=== PATIENT | male | born 1970 | race Caucasian/White ===

== ENCOUNTER 2022-12-12 10:50 | Observation (INO) | payer OTHER ==
[2022-12-12] MEDS ORDERED: NALOXONE 0.4 MG/ML 1 ML VIAL IV STA (11:10)
[2022-12-12] MEDS ORDERED: SODIUM CHLORIDE 0.9% 1,000 ML IV ONE (11:10)
--- NOTE | 2022-12-12 12:05 | ED ---
General Adult HPI - General Chief complaint: Altered Mental Status Stated complaint: AMS Time Seen by Provider: 12/12/22 11:00 Source: patient, EMS, RN notes reviewed Mode of arrival: EMS Limitations: altered mental status - History of Present Illness Initial comments: Patient is a pleasant 52-year-old male presenting to the emergency Department with reported change in mental status. Patient has been at [facility] for the past 4 days for methamphetamine and cocaine use. Patient denies any use today. Patient states she just feels very drowsy and fatigued. Patient does not feel confused. Patient does not feel weak. No reported trauma. No history of similar symptoms previously. - Related Data Home Medications Medication Instructions Recorded Confirmed Albuterol Inhaler [Ventolin Hfa 1 - 2 puff INHALATION RT-QID PRN 12/12/22 12/12/22 Inhaler] Aspirin EC [Ecotrin Low Dose] 81 mg PO DAILY 12/12/22 12/12/22 Atorvastatin [Lipitor] 40 mg PO HS 12/12/22 12/12/22 Buprenorphine HCl/Naloxone HCl 1 tab SUBLINGUAL BID 12/12/22 12/12/22 [Zubsolv 5.7-1.4 mg Tablet Sl] FLUoxetine HCL [PROzac] 40 mg PO DAILY 12/12/22 12/12/22 Losartan [Cozaar] 50 mg PO DAILY 12/12/22 12/12/22 Metoprolol Succinate [Metoprolol 25 mg PO DAILY 12/12/22 12/12/22 Succinate ER] QUEtiapine FUMARATE [SEROquel] 300 mg PO HS 12/12/22 12/12/22 amLODIPine [Norvasc] 5 mg PO DAILY 12/12/22 12/12/22 Allergies Allergy/AdvReac Type Severity Reaction Status Date / Time No Known Allergies Allergy Verified 12/12/22 13:37 Review of Systems ROS Statement: Those systems with pertinent positive or pertinent negative responses have been documented in the HPI. ROS Other: All systems not noted in ROS Statement are negative. Constitutional: Denies: fever Eyes: Denies: eye pain ENT: Denies: ear pain Respiratory: Denies: cough, dyspnea Cardiovascular: Denies: chest pain Endocrine: Reports: as per HPI, fatigue Gastrointestinal: Denies: abdominal pain Genitourinary: Denies: dysuria Musculoskeletal: Denies: back pain Skin: Denies: rash Past Medical History Past Medical History: Unable to Obtain History of Any Multi-Drug Resistant Organisms: None Reported Past Surgical History: Unable to Obtain Past Psychological History: No Psychological Hx Reported Smoking Status: Current every day smoker Past Alcohol Use History: Rare Past Drug Use History: Cocaine, Methamphetamine General Exam Limitations: altered mental status General appearance: other (Patient is drowsy and arousable to loud voice) Head exam: Present: normocephalic Eye exam: Present: normal appearance, EOMI Pupils: Present: mydriatic (Mild) ENT exam: Present: normal oropharynx Neck exam: Present: normal inspection. Absent: tenderness, meningismus Respiratory exam: Present: normal lung sounds bilaterally Cardiovascular Exam: Present: regular rate, normal rhythm GI/Abdominal exam: Present: soft. Absent: tenderness Extremities exam: Present: normal inspection, full ROM. Absent: tenderness Neurological exam: Present: oriented X3, CN II-XII intact. Absent: motor sensory deficit Expanded Neurological exam: Present: protecting the airway Patient oriented to: Present: person, place, time Cranial nerves: EOM's Intact: Normal, Facial Sensation: Normal Sensory exam: Upper Extremity Light Touch: Normal, Lower Extremity Light Touch: Normal Motor strength exam: RUE: 5, LUE: 5, RLE: 5, LLE: 5 Eye Response: (3) open to voice Motor Response: (6) obeys commands Verbal Response: (5) oriented Psychiatric exam: Present: normal affect, normal mood Skin exam: Present: normal color Course Vital Signs 12/12/22 12/12/22 12/12/22 11:37 12:33 12:35 Temperature 98.2 F Pulse Rate 63 50 L Respiratory 18 16 16 Rate Blood Pressure 140/98 142/87 O2 Sat by Pulse 99 100 Oximetry 12/12/22 15:25 Temperature Pulse Rate 45 L Respiratory 16 Rate Blood Pressure 159/95 O2 Sat by Pulse 100 Oximetry EKG Findings - EKG Results: EKG: interpreted by ERMD (Left axis), sinus rhythm, normal axis, normal QRS, normal ST/T Medical Decision Making - Medical Decision Making Was pt. sent in by a medical professional or institution (, PA, BRICK CATCHER, urgent care, hospital, or fdc...) When possible be specific @ -Patient was sent from [facility] Did you speak to anyone other than the patient for history (EMS, parent, family, police, friend...)? What history was obtained from this source @ -Patient did receive atropine by EMS secondary to bradycardia and route. Did you review nursing and triage notes (agree or disagree)? Why? @ -I reviewed and agree with nursing and triage notes Were old charts reviewed (outside hosp., previous admission, EMS record, old EKG, old radiological studies, urgent care reports/EKG's, fdc records)? Report findings @ -No old charts were reviewed Differential Diagnosis (chest pain, altered mental status, abdominal pain women, abdominal pain men, vaginal bleeding, weakness, fever, dyspnea, syncope, headache, dizziness, GI bleed, back pain, seizure, CVA, palpatations, mental health)? @ -Differential Altered Mental Status: Hypoglycemia, DKA, hypercapnia, ETOH, overdose, CO poisoning, trauma, myxedema coma, HTN encephalopathy, infection, encephalitis, psychosis, intercranial hemorrhage, hepatic encephalopathy, meningitis, CVA, this is not meant to be an all-inclusive list EKG interpreted by me (3pts min.). @ -As above X-rays interpreted by me (1pt min.). @ -Chest x-ray shows no acute process CT interpreted by me (1pt min.). @ -For reviewed U/S interpreted by me (1pt. min.). @ -None done What testing was considered but not performed or refused? (CT, X-rays, U/S, labs)? Why? @ -None What meds were considered but not given or refused? Why? @ -None Did you discuss the management of the patient with other professionals (professionals i.e. , PA, BRICK CATCHER, lab, RT, psych nurse, child protective services social worker, director of convention services, teacher, armored vehicle officer, case consultant)? Give summary @ -Case was discussed with Dr. Rae who will admit patient for observation. He will evaluate his heart is testing Was smoking cessation discussed for >3mins.? @ -No Was critical care preformed (if so, how long)? @ -No Were there social determinants of health that impacted care today? How? (Homelessness, low income, unemployed, alcoholism, drug addiction, transportation, low edu. Level, literacy, decrease access to med. care, residential, rehab)? @ -No Was there de-escalation of care discussed even if they declined (Discuss DNR or withdrawal of care, Hospice)? DNR status @ -No What co-morbidities impacted this encounter? (DM, HTN, Smoking, COPD, CAD, Cancer, CVA, ARF, Chemo, Hep., AIDS, mental health diagnosis, sleep apnea, morbid obesity)? @ -Patient is at [facility] for okaying and methamphetamine abuse. Was patient admitted / discharged? Hospital course, mention meds given and route, prescriptions, significant lab abnormalities, going to OR and other pertinent info. @ -Patient will be held for admission for monitoring including heart rate. Patient will be evaluated by medicine. Undiagnosed new problem with uncertain prognosis? @ -No Drug Therapy requiring intensive monitoring for toxicity (Heparin, Nitro, Insulin, Cardizem)? @ -No Were any procedures done? @ -No Diagnosis/symptom? @ -Altered mental status, bradycardia Acute, or Chronic, or Acute on Chronic? @ -Acute, acute Uncomplicated (without systemic symptoms) or Complicated (systemic symptoms)? @ -default Side effects of treatment? @ -No Exacerbation, Progression, or Severe Exacerbation? @ -No Poses a threat to life or bodily function? How? (Chest pain, [place], CA, pneumonia, PE, COPD, DKA, ARF, appy, cholecystitis, CVA, Diverticulitis, Homicidal, Suicidal, threat to staff... and all critical care pts) @ -No - Lab Data Result diagrams: 12/12/22 11:36 12/12/22 11:36 Lab Results 12/12/22 12/12/22 12/12/22 Range/Units 11:36 11:36 11:36 WBC 8.2 (3.8-10.6) k/uL RBC 4.10 L (4.30-5.90) m/uL Hgb 12.8 L (13.0-17.5) gm/dL Hct 39.2 (39.0-53.0) % MCV 95.5 (80.0-100.0) fL MCH 31.2 (25.0-35.0) pg MCHC 32.7 (31.0-37.0) g/dL RDW 13.1 (11.5-15.5) % Plt Count 264 (150-450) k/uL MPV 7.9 Neutrophils % 71 % Lymphocytes % 19 % Monocytes % 6 % Eosinophils % 2 % Basophils % 1 % Neutrophils # 5.9 (1.3-7.7) k/uL Lymphocytes # 1.6 (1.0-4.8) k/uL Monocytes # 0.5 (0-1.0) k/uL Eosinophils # 0.1 (0-0.7) k/uL Basophils # 0.1 (0-0.2) k/uL PT 9.8 (9.0-12.0) sec INR 0.9 (<1.2) APTT 22.4 (22.0-30.0) sec Sodium 136 L (137-145) mmol/L Potassium 5.1 (3.5-5.1) mmol/L Chloride 108 H (98-107) mmol/L Carbon Dioxide 23 (22-30) mmol/L Anion Gap 5 mmol/L BUN 21 H (9-20) mg/dL Creatinine 0.84 (0.66-1.25) mg/dL Est GFR (CKD-EPI)AfAm >90 (>60 ml/min/1.73 sqM) Est GFR (CKD-EPI)NonAf >90 (>60 ml/min/1.73 sqM) Glucose 72 L (74-99) mg/dL POC Glucose (mg/dL) (70-110) mg/dL POC Glu Electrocardiograph Repairer ID Calcium 8.6 (8.4-10.2) mg/dL Total Bilirubin 0.5 (0.2-1.3) mg/dL AST 39 (17-59) U/L ALT 34 (4-49) U/L Alkaline Phosphatase 69 (38-126) U/L Troponin I (0.000-0.034) ng/mL Total Protein 6.0 L (6.3-8.2) g/dL Albumin 3.4 L (3.5-5.0) g/dL Serum Alcohol <10 mg/dL 12/12/22 12/12/22 Range/Units 11:36 13:13 WBC (3.8-10.6) k/uL RBC (4.30-5.90) m/uL Hgb (13.0-17.5) gm/dL Hct (39.0-53.0) % MCV (80.0-100.0) fL MCH (25.0-35.0) pg MCHC (31.0-37.0) g/dL RDW (11.5-15.5) % Plt Count (150-450) k/uL MPV Neutrophils % % Lymphocytes % % Monocytes % % Eosinophils % % Basophils % % Neutrophils # (1.3-7.7) k/uL Lymphocytes # (1.0-4.8) k/uL Monocytes # (0-1.0) k/uL Eosinophils # (0-0.7) k/uL Basophils # (0-0.2) k/uL PT (9.0-12.0) sec INR (<1.2) APTT (22.0-30.0) sec Sodium (137-145) mmol/L Potassium (3.5-5.1) mmol/L Chloride (98-107) mmol/L Carbon Dioxide (22-30) mmol/L Anion Gap mmol/L BUN (9-20) mg/dL Creatinine (0.66-1.25) mg/dL Est GFR (CKD-EPI)AfAm (>60 ml/min/1.73 sqM) Est GFR (CKD-EPI)NonAf (>60 ml/min/1.73 sqM) Glucose (74-99) mg/dL POC Glucose (mg/dL) 81 (70-110) mg/dL POC Glu Electrocardiograph Repairer ID Lisbeth Olivares Calcium (8.4-10.2) mg/dL Total Bilirubin (0.2-1.3) mg/dL AST (17-59) U/L ALT (4-49) U/L Alkaline Phosphatase (38-126) U/L Troponin I 0.016 (0.000-0.034) ng/mL Total Protein (6.3-8.2) g/dL Albumin (3.5-5.0) g/dL Serum Alcohol mg/dL Disposition Clinical Impression: Altered mental status, Bradycardia Disposition: ADMITTED IP TO THIS HOSP Is patient prescribed a controlled substance at d/c from ED?: No Referrals: None,Stated [Primary Care Provider] - 1-2 days Time of Disposition: 15:45
[2022-12-12 12:09] LABS: Basophils # (A) 0.1 k/uL (0-0.2); Basophils % (A) 1 %; Eosinophils # (A) 0.1 k/uL (0-0.7); Eosinophils % (A) 2 %; HCT 39.2 % (39.0-53.0); HGB 12.8 gm/dL (13.0-17.5); Lymphocytes # (A) 1.6 k/uL (1.0-4.8); Lymphocytes % (A) 19 %; MCH 31.2 pg (25.0-35.0); MCHC 32.7 g/dL (31.0-37.0); MCV 95.5 fL (80.0-100.0); Mean Platelet Volume 7.9; Monocytes # (A) 0.5 k/uL (0-1.0); Monocytes % (A) 6 %; Neutrophils # (A) 5.9 k/uL (1.3-7.7); Neutrophils % (A) 71 %; Platelet Count 264 k/uL (150-450); RDW 13.1 % (11.5-15.5); WBC 8.2 k/uL (3.8-10.6)
--- NOTE | 2022-12-12 12:12 | CT ---
EXAMINATION TYPE: CT brain wo con DATE OF EXAM: 12/12/2022 COMPARISON: No prior CT INDICATION: altered mental status DLP: 1142.4 mGycm, Automated exposure control for dose reduction was used. CONTRAST: None CT of the brain is performed utilizing 3 mm thick sections through the posterior fossa and 3 mm thick sections through the remaining calvarium. Study is performed within 24 hours of arrival to the hosp ital. No abnormal hyperdensity is present to suggest an acute intracranial hemorrhage. No mass lesion is evident. No acute infarcts are evident. Old appearing infarct within the occipital lobe and posterior parietal lobe may be present. No mass effect is evident. Minimal ex vacuo effect on the lateral ventricle may be present Ventricles and sulci are appropriate for the patient age. Paranasal sinuses and mastoid air cells within the [id number] are clear. Right septal deviation is evident. IMPRESSIONS: 1. 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 2. No acute intracranial process. Follow-up MRI can be performed as clinically indicated
[2022-12-12 12:17] LABS: INR 0.9 (<1.2); Partial Thromboplastin Time 22.4 sec (22.0-30.0); Prothrombin Time 9.8 sec (9.0-12.0)
--- NOTE | 2022-12-12 12:32 | XR ---
EXAMINATION TYPE: XR chest 2V DATE OF EXAM: 12/12/2022 COMPARISON: None INDICATION: Acute mental status change TECHNIQUE: Frontal and lateral views of the chest are obtained. FINDINGS: The heart size is normal. The pulmonary vasculature is normal. The lungs are clear. IMPRESSION: 1. No acute pulmonary process.
[2022-12-12 12:50] LABS: ALT 34 U/L (4-49); African American GFR (CKD) >90 (>60 ml/min/1.73 sqM); Albumin 3.4 g/dL (3.5-5.0); Alcohol <10 mg/dL; Anion Gap 5 mmol/L; Blood Urea Nitrogen 21 mg/dL (9-20); Calcium 8.6 mg/dL (8.4-10.2); Carbon Dioxide 23 mmol/L (22-30); Chloride 108 mmol/L (98-107); Glucose 72 mg/dL (74-99); Non-African American GFR(CKD) >90 (>60 ml/min/1.73 sqM); Potassium 5.1 mmol/L (3.5-5.1); Sodium 136 mmol/L (137-145); Total Bilirubin 0.5 mg/dL (0.2-1.3)
[2022-12-12 12:51] LABS: AST 39 U/L (17-59); Alkaline Phosphatase 69 U/L (38-126)
[2022-12-12 13:14] LABS: Glucose,Whole Blood 81 mg/dL (70-110)
[2022-12-12 15:45] LABS: Appearance,Urine Clear (Clear); Bilirubin,Urine Negative (Negative); Blood,Urine Negative (Negative); Color,Urine Colorless; Glucose,Urine (UA) Negative (Negative); Ketones,Urine Negative (Negative); Leukocyte Esterase,Urine Negative (Negative); Nitrite,Urine Negative (Negative); Protein,Urine Negative (Negative); Specific Gravity,Urine 1.005 (1.001-1.035); Urobilinogen,Urine <2.0 mg/dL (<2.0)
[2022-12-12] MEDS ORDERED: NALOXONE 0.4 MG/ML 1 ML VIAL IV PRN (15:46)
[2022-12-12 15:55] LABS: Amphetamine Screen,Urine Not Detected (NotDetected); Barbiturate Screen,Urine Not Detected (NotDetected); Benzodiazepines Screen,Urine Not Detected (NotDetected); Cocaine Screen,Urine Detected (NotDetected); Methadone Screen, Urine Not Detected (NotDetected); Opiate Screen,Urine Not Detected (NotDetected); Oxycodone Screen, Urine Not Detected (NotDetected); Phencyclidine Screen,Urine Not Detected (NotDetected); Tricyclic Antidepressant,Urine Detected (NotDetected); Urn Cannabinoid Scrn Detected (NotDetected)
--- NOTE | 2022-12-12 17:18 | P.HPIM ---
History of Present Illness H&P Date: 12/12/22 Patient is a 52-year-old male with PMH of hypertension, history of IV heroin and methamphetamine abuse presents to the ED after being sent from [place] for altered mentation. Patient reports feeling extremely drowsy and fatigued. He last used IV methamphetamine 4 days ago. He has no other complaints. He denies any headache, lower matilda edema, nausea or vomiting, fever or chills, cough, chest pain, shortness of breath, palpitations, changes in urination or bowel habits. No changes in appetite or weight. He denies any dizziness, numbness/weakness/tingling of the extremities. In the ED, his vital signs are stable except noted to be bradycardic with heart rate in the 40s. CBC showed hemoglobin of 12.8. Coagulation panel within normal limits. CMP showed sodium 136, chloride of 108, BUN of 21, glucose of 72, albumin is 3.4. Troponin was 0.016. Serum alcohol was negative. EKG showed sinus arrhythmia with ventricular rate of 70. Brain CT showed old right parietal occipital infarcts. Chest X-ray negative. Patient is admitted for workup of bradycardia. Pertinent positives and negatives as discussed in HPI, a complete review of systems was performed and all other systems are negative. General: Somnolent, no distress, appears at stated age Derm: warm, dry Head: atraumatic, normocephalic, symmetric Eyes: EOMI, no lid lag, anicteric sclera Mouth: no lip lesion, mucus membranes moist Cardiovascular: Bradycardic, no murmur, positive posterior tibial pulse bilateral, Lungs: CTA bilateral, no rhonchi, no rales , no accessory muscle use Abdominal: soft, nontender to palpation, no guarding, no appreciable organomegaly Ext: no gross muscle atrophy, no edema, no contractures Neuro: no focal neuro deficits Psych: Alert, oriented, appropriate affect Bradycardia Hypoglycemia Hypertension History of IV drug abuse Based on my assessment of this patient, this patient meets a high complexity level of care. Patient has an acute diagnosis of bradycardia with heart rate in the 40s that poses a threat to life or bodily function. Fluoxetine, metoprolol and Seroquel will be held. Cardiology will be consulted for further management of this patient. Patient be placed on telemetry monitoring. Fall precautions will be ordered. Advanced neurochecks ordered. His hypoglycemia has resolved with oral intake. Accu-Cheks before meals and at bedtime ordered. Restart amlodipine 5 mg by mouth daily, losartan 50 mg by mouth daily. Patient encouraged to quit illicit substances. Lovenox SQ for DVT prophylaxis. Patient will be placed full code. I have reviewed the following inbound sales consultant notes: I have reviewed the results of the following tests: CBC, coagulation panel, CMP, troponin, serum alcohol, brain CT, chest x-ray as above. I have ordered the following tests: Ammonia level pending. Obtain echocardiogram. I have discussed the care of this patient with the following independent historian: I have independently interpreted the following test below: EKG as above. I have discussed the management of this patient with the following physician: The case was discussed with the ED physician. Past Medical History Past Medical History: Unable to Obtain History of Any Multi-Drug Resistant Organisms: None Reported Past Surgical History: Unable to Obtain Past Psychological History: No Psychological Hx Reported Smoking Status: Current every day smoker Past Alcohol Use History: Rare Past Drug Use History: Cocaine, Methamphetamine Medications and Allergies Home Medications Medication Instructions Recorded Confirmed Type Albuterol Inhaler [Ventolin Hfa 1 - 2 puff INHALATION RT-QID PRN 12/12/22 12/12/22 History Inhaler] Aspirin EC [Ecotrin Low Dose] 81 mg PO DAILY 12/12/22 12/12/22 History Atorvastatin [Lipitor] 40 mg PO HS 12/12/22 12/12/22 History Buprenorphine HCl/Naloxone HCl 1 tab SUBLINGUAL BID 12/12/22 12/12/22 History [Zubsolv 5.7-1.4 mg Tablet Sl] FLUoxetine HCL [PROzac] 40 mg PO DAILY 12/12/22 12/12/22 History Losartan [Cozaar] 50 mg PO DAILY 12/12/22 12/12/22 History Metoprolol Succinate [Metoprolol 25 mg PO DAILY 12/12/22 12/12/22 History Succinate ER] QUEtiapine FUMARATE [SEROquel] 300 mg PO HS 12/12/22 12/12/22 History amLODIPine [Norvasc] 5 mg PO DAILY 12/12/22 12/12/22 History Allergies Allergy/AdvReac Type Severity Reaction Status Date / Time No Known Allergies Allergy Verified 12/12/22 13:37 Physical Exam Vitals: Vital Signs Temp Pulse Resp BP Pulse Ox 12/12/22 17:07 54 L 16 137/106 99 12/12/22 15:25 45 L 16 159/95 100 12/12/22 12:35 50 L 16 142/87 100 12/12/22 12:33 16 12/12/22 11:37 98.2 F 63 18 140/98 99 Intake and Output 12/12/22 12/12/22 12/12/22 06:59 14:59 22:59 Other: Weight 70.307 kg Results CBC & Chem 7: 12/12/22 11:36 12/12/22 11:36 Labs: Abnormal Lab Results - Last 24 Hours (Table) 12/12/22 12/12/22 12/12/22 Range/Units 11:36 11:36 15:00 RBC 4.10 L (4.30-5.90) m/uL Hgb 12.8 L (13.0-17.5) gm/dL Sodium 136 L (137-145) mmol/L Chloride 108 H (98-107) mmol/L BUN 21 H (9-20) mg/dL Glucose 72 L (74-99) mg/dL Total Protein 6.0 L (6.3-8.2) g/dL Albumin 3.4 L (3.5-5.0) g/dL U Tricyclic Antidepress Detected H (NotDetected) Urine Cocaine Screen Detected H (NotDetected) U Marijuana (THC) Screen Detected H (NotDetected)
[2022-12-12] MEDS: ATORVASTATIN 40 MG TAB PO SCH (20:27)
[2022-12-12 20:36] LABS: Glucose,Whole Blood 124 mg/dL (70-110)
[2022-12-13 06:05] LABS: Glucose,Whole Blood 135 mg/dL (70-110)
[2022-12-13] MEDS: ASPIRIN 81 MG PO SCH (09:10)
[2022-12-13] MEDS: amLODIPine 5 MG TAB PO SCH (09:10)
[2022-12-13] MEDS: LOSARTAN 50 MG TAB PO SCH (09:10)
[2022-12-13] MEDS: ENOXAPARIN 40 MG/0.4 ML SYRINGE SQ SCH (09:11)
[2022-12-13 11:07] LABS: ALT 29 U/L (10-49); AST 26 U/L (14-35); Albumin 3.4 d/dL (3.8-4.9); Alkaline Phosphatase 70 U/L (41-126); Blood Urea Nitrogen 13.3 mg/dL (9.0-27.0); Calcium 8.8 mg/dL (8.7-10.3); Carbon Dioxide 20.8 mmol/L (21.6-31.8); Chloride 112 mmol/L (96-109); Glucose 84 mg/dL (70-110); Magnesium 2.2 mg/dL (1.5-2.4); Potassium 4.4 mmol/L (3.5-5.5); Sodium 144 mmol/L (135-145); Total Bilirubin 0.3 mg/dL (0.3-1.2); Total Protein 5.4 d/dL (6.2-8.2)
[2022-12-13 11:08] LABS: Basophils # (A) 0.04 X 10*3/uL (0.00-0.10); Basophils % (A) 0.6 %; Eosinophils # (A) 0.17 X 10*3/uL (0.04-0.35); Eosinophils % (A) 2.4 %; HCT 40.6 % (39.6-50.0); HGB 13.1 d/dL (12.0-15.0); Lymphocytes # (A) 1.84 X 10*3/uL (0.90-5.00); Lymphocytes % (A) 26.4 %; MCH 30.3 pg (27.0-32.0); MCHC 32.3 d/dL (32.0-37.0); Mean Platelet Volume 9.8 FL (9.5-12.2); Monocytes # (A) 0.62 X 10*3/uL (0.20-1.00); Monocytes % (A) 8.9 %; NRBC Per 100 WBC 0 X 10*3/uL (0.00-0.01); Neutrophils # (A) 4.28 X 10*3/uL (1.80-7.70); Neutrophils % (A) 61.6 %; Platelet Count 280 X 10*3/uL (140-440); RBC 4.32 X 10*6/uL (4.40-5.60); RDW 13.5 % (11.5-14.5); WBC 6.96 X 10*3/uL (4.50-10.00)
--- NOTE | 2022-12-13 12:28 | P.PN ---
Subjective Progress Note Date: 12/13/22 Patient is a 52-year-old male with PMH of hypertension, history of IV heroin and methamphetamine abuse presents to the ED after being sent from [facility] for altered mentation. Patient reports feeling extremely drowsy and fatigued. He last used IV methamphetamine 4 days ago. He has no other complaints. He denies any headache, lower matilda edema, nausea or vomiting, fever or chills, cough, chest pain, shortness of breath, palpitations, changes in urination or bowel habits. No changes in appetite or weight. He denies any dizziness, numbness/weakness/tingling of the extremities. In the ED, his vital signs are stable except noted to be bradycardic with heart rate in the 40s. CBC showed hemoglobin of 12.8. Coagulation panel within normal limits. CMP showed sodium 136, chloride of 108, BUN of 21, glucose of 72, albumin is 3.4. Troponin was 0.016. Serum alcohol was negative. EKG showed sinus arrhythmia with ventricular rate of 70. Brain CT showed old right parietal occipital infarcts. Chest X-ray negative. Patient is admitted for workup of bradycardia. 12/13 Patient was seen and examined. No acute events overnight. He remains bradycardic in the 40's. Much more awake and responsive today. States that he was lightheaded and not himself when stading up at [facility]. He denies any dizzines, chest pain, SOB or palpitations. CBC shows RBC count of 4.32. BMP shows Cl 112, bicarb 20.8. Ammonia 37. POC glucose 135. General: No distress, appears at stated age Derm: warm, dry Head: atraumatic, normocephalic, symmetric Eyes: EOMI, no lid lag, anicteric sclera Mouth: no lip lesion, mucus membranes moist Cardiovascular: Bradycardic, no murmur Lungs: CTA bilateral, no rhonchi, no rales , no accessory muscle use Ext: no gross muscle atrophy, no edema, no contractures Neuro: no focal neuro deficits Psych: Alert, oriented, appropriate affect Bradycardia Hypertension History of IV drug abuse Resolved: Hypoglycemia Based on my assessment of this patient, this patient meets a moderate complexity level of care. Patient has an acute diagnosis of bradycardia with heart rate in the 40s that poses a threat to life or bodily function. Fluoxetine, metoprolol and Seroquel will be held. Cardiology will be consulted for further management of this patient. Patient be placed on telemetry monitoring. Fall precautions will be ordered. Advanced neurochecks ordered. His hypoglycemia has resolved with oral intake. Accu-Cheks before meals and at bedtime ordered. Restart amlodipine 5 mg by mouth daily, losartan 50 mg by mouth daily. Patient encouraged to quit illicit substances. Lovenox SQ for DVT prophylaxis. Patient will be placed full code. I have reviewed the following development consultant notes: I have reviewed the results of the following tests: CBC, BMP, POC glucose, Ammonia as above. I have ordered the following tests: Echocardiogram pending. I have discussed the care of this patient with the following independent historian: I have independently interpreted the following test below: I have discussed the management of this patient with the following physician: Objective - Vital Signs Vital signs: Vital Signs Temp 98 F 12/13/22 07:20 Pulse 46 L 12/13/22 09:10 Resp 15 12/13/22 07:20 BP 161/85 12/13/22 07:20 Pulse Ox 97 12/13/22 07:20 FiO2 Intake & Output 12/12/22 12/13/22 12/13/22 18:59 06:59 18:59 Weight 70.307 kg Other: Voiding Method Toilet # Voids 1 - Labs CBC & Chem 7: 12/13/22 06:55 12/13/22 06:55 Labs: Abnormal Lab Results - Last 24 Hours (Table) 12/12/22 12/12/22 12/12/22 Range/Units 11:36 15:00 16:35 RBC (4.40-5.60) X 10*6/uL Sodium 136 L (137-145) mmol/L Chloride 108 H (98-107) mmol/L Carbon Dioxide (21.6-31.8) mmol/L BUN 21 H (9-20) mg/dL Glucose 72 L (74-99) mg/dL POC Glucose (mg/dL) (70-110) mg/dL Ammonia 37 H (<30) umol/L Total Protein 6.0 L (6.3-8.2) g/dL Albumin 3.4 L (3.5-5.0) g/dL U Tricyclic Antidepress Detected H (NotDetected) Urine Cocaine Screen Detected H (NotDetected) U Marijuana (THC) Screen Detected H (NotDetected) 12/12/22 12/13/22 12/13/22 Range/Units 20:34 05:57 06:55 RBC 4.32 L (4.40-5.60) X 10*6/uL Sodium (137-145) mmol/L Chloride (98-107) mmol/L Carbon Dioxide (21.6-31.8) mmol/L BUN (9-20) mg/dL Glucose (74-99) mg/dL POC Glucose (mg/dL) 124 H 135 H (70-110) mg/dL Ammonia (<30) umol/L Total Protein (6.3-8.2) g/dL Albumin (3.5-5.0) g/dL U Tricyclic Antidepress (NotDetected) Urine Cocaine Screen (NotDetected) U Marijuana (THC) Screen (NotDetected) 12/13/22 Range/Units 06:55 RBC (4.40-5.60) X 10*6/uL Sodium (137-145) mmol/L Chloride 112 H (98-107) mmol/L Carbon Dioxide 20.8 L (21.6-31.8) mmol/L BUN (9-20) mg/dL Glucose (74-99) mg/dL POC Glucose (mg/dL) (70-110) mg/dL Ammonia (<30) umol/L Total Protein 5.4 L (6.3-8.2) g/dL Albumin 3.4 L (3.5-5.0) g/dL U Tricyclic Antidepress (NotDetected) Urine Cocaine Screen (NotDetected) U Marijuana (THC) Screen (NotDetected)
[2022-12-13 13:40] LABS: Glucose,Whole Blood 120 mg/dL (70-110)
--- NOTE | 2022-12-13 16:20 | CA ---
Transthoracic Echo Report Name: Alex Pineda Age: 52 Gender: M : 1970 Exam Date: 12/13/2022 08:12 Exam Location: [facility] Ht (in): 66 Wt (lb): 155 Ordering Physician: Anna Downey MD Attending/Referring Phys: Hand Collator Malaika Cook RDCS Procedure CPT: Indications: Bradycardia Cardiac Hx: Technical Quality: Fair Contrast 1: Total Dose (mL): Contrast 2: Total Dose (mL): MEASUREMENTS (Male / Female) Normal Values 2D ECHO LV Diastolic Diameter PLAX 4.4 cm 4.2 - 5.9 / 3.9 - 5.3 cm LV Systolic Diameter PLAX 2.6 cm IVS Diastolic Thickness 0.9 cm 0.6 - 1.0 / 0.6 - 0.9 cm LVPW Diastolic Thickness 0.8 cm 0.6 - 1.0 / 0.6 - 0.9 cm LV Relative Wall Thickness 0.4 RV Internal Dim ED PLAX 2.7 cm LA Volume 34.1 cm??? 18 - 58 / 22 - 52 cm??? M-MODE Aortic Root Diameter MM 3.3 cm LA Systolic Diameter MM 3.0 cm LA Ao Ratio MM 0.9 AV Cusp Separation MM 2.4 cm DOPPLER AV Peak Velocity 108.3 cm/s AV Peak Gradient 4.7 mmHg AV Mean Velocity 76.0 cm/s AV Mean Gradient 2.5 mmHg AV Velocity Time Integral 24.0 cm LVOT Peak Velocity 58.8 cm/s LVOT Peak Gradient 1.4 mmHg MV Area PHT 3.3 cm??? Mitral E Point Velocity 69.0 cm/s Mitral A Point Velocity 59.2 cm/s Mitral E to A Ratio 1.2 MV Deceleration Time 231.0 ms MV E' Velocity 8.0 cm/s Mitral E to MV E' Ratio 8.6 TR Peak Velocity 216.3 cm/s TR Peak Gradient 18.7 mmHg Right Ventricular Systolic Press 23.7 mmHg FINDINGS Left Ventricle Normal Left ventricular size, wall thickness, systolic function with no obvious regional wall motion abnormalities. Normal Left ventricular diastolic filling pattern. Left ventricular ejection fraction is estimated at 55 %. Right Ventricle Normal right ventricular size and function. Right ventricular systolic pressure within normal limits. Right Atrium Normal right atrial size. Left Atrium Normal left atrial size. Mitral Valve Structurally normal mitral valve. Mild mitral regurgitation. Aortic Valve Trileaflet aortic valve. No aortic stenosis. Trace to mild aortic regurgitation. Tricuspid Valve Structurally normal tricuspid valve. Mild tricuspid regurgitation. Pulmonic Valve Pulmonic valve not well visualized. Pericardium No pericardial effusion. Aorta Normal size aortic root and proximal ascending aorta. CONCLUSIONS Left ventricular ejection fraction 55% RVSP 23 Mild mitral regurgitation Mild tricuspid regurgitation Previewed by: Dr. Otoniel Xiong DO (Electronically Signed) Final Date: 13 December 2022 16:19
[2022-12-13 17:48] LABS: Glucose,Whole Blood 107 mg/dL (70-110)
[2022-12-13] MEDS: ATORVASTATIN 40 MG TAB PO SCH (21:07)
--- NOTE | 2022-12-13 23:21 | P.CRDCN ---
History of Present Illness History of present illness: HISTORY OF PRESENTING ILLNESS Patient is a pleasant 52-year-old male with history of hypertension, IV heroin, methamphetamine, cocaine abuse who presents apparently secondary to altered mentation. Per H&P apparently patient had altered mental status and was feeling drowsy and fatigued. Patient states he was going to be admitted to [facility] and they noted that his heart rate was low and therefore send patient to ER. He denies any chest pain or pressure or lightheadedness. He has chronic mild dyspnea which is somewhat worse over last 6 months. He has been on metoprolol and denies any prior history of [place]. Work shows white blood cell count 8.2, and hemoglobin 12.8, BUN 21, creatinine 0.8, troponin 0.016, AST 39, ALT 34, glucose was 72. Urinalysis was positive for tricyclic antidepressants, cocaine and marijuana. REVIEW OF SYSTEMS At the time of my exam: CONSTITUTIONAL: Denies fever or chills. CARDIOVASCULAR: Denies chest pain, +chronic shortness of breath, no orthopnea, PND or palpitations. RESPIRATORY: Denies cough. GASTROINTESTINAL: Denies abdominal pain, diarrhea, constipation, nausea or vomiting. MUSCULOSKELETAL: Denies myalgias. NEUROLOGIC: Denies numbness, tingling or weakness. ENDOCRINE: Denies fatigue, weight change, polydipsia or polyurina. GENITOURINARY: Denies burning, hematuria or urgency with micturation. HEMATOLOGIC: Denies history of anemia or bleeding. PHYSICAL EXAMINATION Vital signs reviewed. CONSTITUTIONAL: No apparent distress. HEENT: Head is normocephalic. Pupils are equal, round. Sclerae anicteric. Mucous membranes of the mouth are moist. No JVD. No carotid bruit. CHEST EXAMINATION: Lungs are clear to auscultation. No chest wall tenderness is noted on palpation or with deep breathing. HEART EXAMINATION: Regular rate and rhythm. S1, S2 heard. No murmurs, gallops or rub. ABDOMEN: Soft, nontender. Positive bowel sounds. EXTREMITIES: 2+ peripheral pulses, no lower extremity edema and no calf tenderness. NEUROLOGIC EXAMINATION: Patient is awake, alert ASSESSMENT 1. Bradycardia, unclear if truly symptomatic with reported altered mental status on presentation with HR's in the 40's. Likely med effect related to Beta ruddy +/- vagal episode 2. History of IV drug use 3. Cocaine use 4. Dyspnea, chronic 5. Questionable altered mental status, appears resolved PLAN Patient appears to have poor insight into his medical problems and unfortunately is still using illicit drugs. Would avoid any beta ruddy given cocaine use. Additionally stop Beta Ruddy given bradycardia. Continue to monitor on telemetry and if no further significant bradycardia, would be cleared for discharge with outpt follow. Consider outpt event monitor if any lightheaded episodes. Past Medical History Past Medical History: Unable to Obtain History of Any Multi-Drug Resistant Organisms: None Reported Past Surgical History: Unable to Obtain Past Psychological History: No Psychological Hx Reported Smoking Status: Current every day smoker Past Alcohol Use History: Rare Past Drug Use History: Cocaine, Methamphetamine Medications and Allergies Home Medications Medication Instructions Recorded Confirmed Type Albuterol Inhaler [Ventolin Hfa 1 - 2 puff INHALATION RT-QID PRN 12/12/22 History Inhaler] Aspirin EC [Ecotrin Low Dose] 81 mg PO DAILY 12/12/22 12/12/22 History Atorvastatin [Lipitor] 40 mg PO HS 12/12/22 12/12/22 History Buprenorphine HCl/Naloxone HCl 1 tab SUBLINGUAL BID 12/12/22 12/12/22 History [Zubsolv 5.7-1.4 mg Tablet Sl] FLUoxetine HCL [PROzac] 40 mg PO DAILY 12/12/22 12/12/22 History Losartan [Cozaar] 50 mg PO DAILY 12/12/22 12/12/22 History Metoprolol Succinate [Metoprolol 25 mg PO DAILY 12/12/22 12/12/22 History Succinate ER] QUEtiapine FUMARATE [SEROquel] 300 mg PO HS 12/12/22 12/12/22 History amLODIPine [Norvasc] 5 mg PO DAILY 12/12/22 12/12/22 History Allergies Allergy/AdvReac Type Severity Reaction Status Date / Time No Known Allergies Allergy Verified 12/12/22 13:37 Physical Exam Vitals: Vital Signs Temp Pulse Pulse Resp BP BP Pulse Ox 12/13/22 07:20 98 F 43 L 15 161/85 97 12/13/22 02:06 98.5 F 70 15 145/84 98 12/12/22 19:39 97.3 F L 54 L 12 127/77 98 12/12/22 18:11 98.3 F 48 L 16 151/84 99 12/12/22 17:07 54 L 16 137/106 99 12/12/22 15:25 45 L 16 159/95 100 12/12/22 12:35 50 L 16 142/87 100 12/12/22 12:33 16 12/12/22 11:37 98.2 F 63 18 140/98 99 Intake and Output 12/12/22 12/13/22 12/13/22 22:59 06:59 14:59 Other: Voiding Method Toilet Toilet # Voids 1 1 Weight 70.307 kg Results 12/13/22 06:55 12/13/22 06:55 Cardiac Enzymes 12/12/22 12/12/22 Range/Units 11:36 11:36 AST 39 (17-59) U/L Troponin I 0.016 (0.000-0.034) ng/mL Coagulation 12/12/22 Range/Units 11:36 PT 9.8 (9.0-12.0) sec APTT 22.4 (22.0-30.0) sec CBC 12/12/22 Range/Units 11:36 WBC 8.2 (3.8-10.6) k/uL RBC 4.10 L (4.30-5.90) m/uL Hgb 12.8 L (13.0-17.5) gm/dL Hct 39.2 (39.0-53.0) % Plt Count 264 (150-450) k/uL Comprehensive Metabolic Panel 12/12/22 Range/Units 11:36 Sodium 136 L (137-145) mmol/L Potassium 5.1 (3.5-5.1) mmol/L Chloride 108 H (98-107) mmol/L Carbon Dioxide 23 (22-30) mmol/L BUN 21 H (9-20) mg/dL Creatinine 0.84 (0.66-1.25) mg/dL Glucose 72 L (74-99) mg/dL Calcium 8.6 (8.4-10.2) mg/dL AST 39 (17-59) U/L ALT 34 (4-49) U/L Alkaline Phosphatase 69 (38-126) U/L Total Protein 6.0 L (6.3-8.2) g/dL Albumin 3.4 L (3.5-5.0) g/dL Current Medications Generic Name Dose Route Start Last Admin Trade Name Freq PRN Reason Stop Dose Admin Amlodipine Besylate 5 mg 12/13/22 09:00 12/13/22 09:10 Amlodipine 5 Mg Tab PO 5 mg DAILY LAUREANO Administration Aspirin 81 mg 12/13/22 09:00 12/13/22 09:10 Aspirin 81 Mg PO 81 mg DAILY LAUREANO Administration Atorvastatin Calcium 40 mg 12/12/22 21:00 12/12/22 20:27 Atorvastatin 40 Mg Tab PO Not Given HS LAUREANO Enoxaparin Sodium 40 mg 12/13/22 09:00 12/13/22 09:11 Enoxaparin 40 Mg/0.4 Ml Syringe SQ 40 mg DAILY LAUREANO Administration Losartan Potassium 50 mg 12/13/22 09:00 12/13/22 09:10 Losartan 50 Mg Tab PO 50 mg DAILY LAUREANO Administration Naloxone HCl 0.2 mg 12/12/22 15:46 Naloxone 0.4 Mg/Ml 1 Ml Vial IV Q2M PRN Opioid Reversal Intake and Output 12/12/22 12/13/22 12/13/22 22:59 06:59 14:59 Other: Voiding Method Toilet Toilet # Voids 1 1 Weight 70.307 kg 12/12/22 11:36 12/12/22 11:36
[2022-12-14 07:42] VITALS: BP 164/99; PULSE 57; RESP 18; TEMP 98.1
[2022-12-14] MEDS: LOSARTAN 50 MG TAB PO SCH (08:50)
[2022-12-14] MEDS: ASPIRIN 81 MG PO SCH (08:50)
[2022-12-14] MEDS: ENOXAPARIN 40 MG/0.4 ML SYRINGE SQ SCH (08:50)
[2022-12-14] MEDS: amLODIPine 5 MG TAB PO SCH (08:50)
--- NOTE | 2022-12-14 09:44 | P.PN ---
Subjective HISTORY OF PRESENT ILLNESS: Patient is a pleasant 52-year-old male with history of hypertension, IV heroin, methamphetamine, cocaine abuse who presents apparently secondary to altered mentation. Per H&P apparently patient had altered mental status and was feeling drowsy and fatigued. Patient states he was going to be admitted to [facility] and they noted that his heart rate was low and therefore send patient to ER. He denies any chest pain or pressure or lightheadedness. He has chronic mild dyspnea which is somewhat worse over last 6 months. He has been on metoprolol and denies any prior history of [place]. Work shows white blood cell count 8.2, and hemoglobin 12.8, BUN 21, creatinine 0.8, troponin 0.016, AST 39, ALT 34, glucose was 72. Urinalysis was positive for tricyclic antidepressants, cocaine and marijuana. 12/14/2022 Patient examined this with the bedside. Patient denies chest pain or pressure. He denies shortness of breath. Blood pressure is stable. Patient is bradycardic with a heart rate in the 40s. PHYSICAL EXAM: VITAL SIGNS: Reviewed. GENERAL: Well-developed in no acute distress. NECK: Supple. No JVD or thyromegaly LUNGS: Respirations even and unlabored. Lungs essentially clear to auscultation bilaterally. HEART: Regular rate and rhythm. S1 and S2 heard. EXTREMITIES: Normal range of motion. No clubbing or cyanosis. Peripheral pulses intact. No lower extremity edema ASSESSMENT: 1. Bradycardia, unclear if truly symptomatic with reported altered mental status on presentation with HR's in the 40's. Likely med effect related to Beta suzie +/- vagal episode 2. History of IV drug use 3. Cocaine use 4. Dyspnea, chronic 5. Questionable altered mental status, appears resolved 6. History of CVA, 2 years ago, per patient PLAN: Continue to hold beta suzie Recommend abstinence from drug use Patient is stable for discharge from a cardiac standpoint We will sign off. Please reconsult if needed. Nurse practitioner note has been reviewed by physician. Signing provider agrees with the documented findings, assessment, and plan of care. Objective - Vital Signs Vital signs: Vital Signs Temp 98.1 F 12/14/22 07:00 Pulse 57 L 12/14/22 07:00 Resp 18 12/14/22 07:00 BP 164/99 12/14/22 07:00 Pulse Ox 99 12/14/22 07:00 FiO2 Intake & Output 12/13/22 12/14/22 12/14/22 18:59 06:59 18:59 Intake Total 458 118 Output Total 0 Balance 458 0 118 Intake: Oral 458 118 Output: Emesis 0 Other: Voiding Method Toilet # Voids 2 1 - Labs CBC & Chem 7: 12/13/22 06:55 12/13/22 06:55 Labs: Abnormal Lab Results - Last 24 Hours (Table) 12/13/22 12/13/22 12/13/22 Range/Units 06:55 06:55 13:35 RBC 4.32 L (4.40-5.60) X 10*6/uL Chloride 112 H (96-109) mmol/L Carbon Dioxide 20.8 L (21.6-31.8) mmol/L POC Glucose (mg/dL) 120 H (70-110) mg/dL Total Protein 5.4 L (6.2-8.2) d/dL Albumin 3.4 L (3.8-4.9) d/dL
--- NOTE | 2022-12-14 12:38 | P.DS ---
Providers Date of admission: 12/12/22 15:47 Expected date of discharge: 12/14/22 Attending physician: Anna Downey MD Primary care physician: Stated None Hospital Course: Patient is a 52-year-old male with PMH of hypertension, history of IV heroin and methamphetamine abuse presents to the ED after being sent from [place] for altered mentation. Patient reports feeling extremely drowsy and fatigued. He last used IV methamphetamine 4 days ago. He has no other complaints. He denies any headache, lower matilda edema, nausea or vomiting, fever or chills, cough, chest pain, shortness of breath, palpitations, changes in urination or bowel habits. No changes in appetite or weight. He denies any dizziness, numbness/weakness/tingling of the extremities. In the ED, his vital signs are stable except noted to be bradycardic with heart rate in the 40s. CBC showed hemoglobin of 12.8. Coagulation panel within normal limits. CMP showed sodium 136, chloride of 108, BUN of 21, glucose of 72, albumin is 3.4. Troponin was 0 .016. Serum alcohol was negative. EKG showed sinus arrhythmia with ventricular rate of 70. Brain CT showed old right parietal occipital infarcts. Chest X-ray negative. Patient is admitted for workup of bradycardia. 12/13 Patient was seen and examined. No acute events overnight. He remains bradycardic in the 40's. Much more awake and responsive today. States that he was lightheaded and not himself when stading up at [place]. He denies any dizzines, chest pain, SOB or palpitations. CBC shows RBC count of 4.32. BMP shows Cl 112, bicarb 20.8. Ammonia 37. POC glucose 135. Cardiology evaluated the patient and recommended discontinuing metoprolol. Echocardiogram showed EF of 55% with normal wall motion abnormalities. Cardiology cleared the patient for discharge. Patient was seen and examined this morning. He reports feeling at baseline. He denies any chest pain, shortness breath or palpitations. No nausea or vomiting. No fever or chills. Pertinent studies include brain CT, chest x-ray, echocardiogram. General: No distress, appears at stated age Derm: warm, dry Head: atraumatic, normocephalic, symmetric Eyes: EOMI, no lid lag, anicteric sclera Mouth: no lip lesion, mucus membranes moist Cardiovascular: Bradycardic, no murmur Lungs: CTA bilateral, no rhonchi, no rales , no accessory muscle use Ext: no gross muscle atrophy, no edema, no contractures Neuro: no focal neuro deficits Psych: Alert, oriented, appropriate affect Discharge diagnoses: Bradycardia Hypertension History of IV drug abuse Resolved: Hypoglycemia This complex discharge took 35 minutes to complete. Patient Condition at Discharge: Good Plan - Discharge Summary New Discharge Prescriptions: Continue Albuterol Inhaler [Ventolin Hfa Inhaler] 1 - 2 puff INHALATION RT-QID PRN PRN Reason: Shortness Of Breath amLODIPine [Norvasc] 5 mg PO DAILY Atorvastatin [Lipitor] 40 mg PO HS Buprenorphine HCl/Naloxone HCl [Zubsolv 5.7-1.4 mg Tablet Sl] 1 tab SUBLINGUAL BID QUEtiapine FUMARATE [SEROquel] 300 mg PO HS Aspirin EC [Ecotrin Low Dose] 81 mg PO DAILY FLUoxetine HCL [PROzac] 40 mg PO DAILY Losartan [Cozaar] 50 mg PO DAILY Discontinued Metoprolol Succinate [Metoprolol Succinate ER] 25 mg PO DAILY Discharge Medication List Albuterol Inhaler [Ventolin Hfa Inhaler] 1 - 2 puff INHALATION RT-QID PRN 12/12/22 [History] Aspirin EC [Ecotrin Low Dose] 81 mg PO DAILY 12/12/22 [History] Atorvastatin [Lipitor] 40 mg PO HS 12/12/22 [History] Buprenorphine HCl/Naloxone HCl [Zubsolv 5.7-1.4 mg Tablet Sl] 1 tab SUBLINGUAL BID 12/12/22 [History] FLUoxetine HCL [PROzac] 40 mg PO DAILY 12/12/22 [History] Losartan [Cozaar] 50 mg PO DAILY 12/12/22 [History] QUEtiapine FUMARATE [SEROquel] 300 mg PO HS 12/12/22 [History] amLODIPine [Norvasc] 5 mg PO DAILY 12/12/22 [History] Follow up Appointment(s)/Referral(s): Otoniel Xiong DO [STAFF PHYSICIAN] - 1 Week ([facility] will call patient to schedule appointment.) None,Stated [Primary Care Provider] - 1-2 days Patient Instructions/Handouts: Bradycardia (DC) Discharge Disposition: HOME SELF-CARE
== END 2022-12-14 13:25 | disposition home or self-care (01) ==
LOC: EC 10:50 → 6NMEDSUR 15:47
PROVIDERS: ADMIT Family Medicine; ATTEND Family Medicine
DX: R00.1 Bradycardia, unspecified (principal); F15.11 Other stimulant abuse, in remission; E16.2 Hypoglycemia, unspecified; R41.82 Altered mental status, unspecified; R06.09 Other forms of dyspnea; I10 Essential (primary) hypertension; Z79.82 Long term (current) use of aspirin; Z79.899 Other long term (current) drug therapy; F17.200 Nicotine dependence, unspecified, uncomplicated; Z79.891 Long term (current) use of opiate analgesic
CPT/HCPCS: 96361 ×3; 96372 ×2; 96374; 99285; 36415; 93005; 93306; 80053 ×2; 82140; 83735; 84484; 85025 ×2; 85610; 85730; 81003; 80306; 71046; 70450; G0378 ×3; G0480; J2310; J1650 ×2; 80320